=== PATIENT | male | born 1990 | race Caucasian/White ===

== ENCOUNTER 2021-02-27 18:40 | Emergency (ER) | payer BC, SELFPAY ==
--- NOTE | ~2021-02-27 | XR_ITS ---
EXAMINATION: XR chest 2V DATE: 02/27/2021 22:04 INDICATION: Palpitations and chest tightness radiating down the left arm. TECHNIQUE: PA and lateral views of the chest were obtained. COMPARISON: None FINDINGS: The lungs are clear with no focal airspace opacities, pulmonary edema, pleural effusion or pneumothor ax. The cardiomediastinal silhouette is normal. Visualized bones and soft tissues are unremarkable. IMPRESSION: 1. No acute cardiopulmonary disease. Reviewed, dictated and finalized at location A.
[2021-02-27 19:09] VITALS: BP 152/86; PULSE 103; RESP 16; TEMP 36.6; O2SAT 99
--- NOTE | 2021-02-27 19:12 | ECG_ITS ---
Measurements Intervals [place] Rate: 94 P: 32 CO: 168 QRS: 9 QRSD: 107 T: 32 QT: 338 QTc: 424 Interpretive Statements SINUS RHYTHM WITH SINUS ARRHYTHMIA BORDERLINE T WAVE ABNORMALITY- INFERIOR LEADS BASELINE ARTIFACT- I, II, AVR, AVL, AVF BORDERLINE ECG Electronically Signed On 02-27-2021 19:58:39 CDT by Jose Mena D.O.
[2021-02-27 21:29] VITALS: BP 107/72; PULSE 107; RESP 18; O2SAT 100
--- NOTE | 2021-02-27 21:50 | ED.GENADULT ---
HPI - General Adult General Chief complaint: Anxiety Stated complaint: THINK I HAD A PANICK ATTACK Time Seen by Provider: 02/27/21 21:23 Source: patient and RN notes reviewed Mode of arrival: ambulatory Limitations: no limitations History of Present Illness HPI narrative: This is a 30 year old male who presents for evaluation of a possible panic attack. He states just prior to arrival he was sitting at his desk. While he was sitting he developed pounding feeling in his neck and pain shooting down his left arm. He denies having chest pain, nausea, vomiting, diaphoresis, sob, or dizziness with these symptoms. He states this lasted for 1 minute and it resolved. He denies any symptoms now. He states an episode similar to this occurred 1 week ago, and he was evaluated at [place]. He denies chest pain or sob in between these symptoms. He states the episode happened last week after taking THC edibles. Related Data Allergies Allergy/AdvReac Type Severity Reaction Status Date / Time No Known Allergies Allergy Unverified 01/28/19 23:53 Review of Systems Review of Systems: All systems reviewed & are unremarkable except as noted in HPI and below PMFSH Past Medical History Medical History (Updated 02/27/21 @ 23:57 by Nalini Yeung MD) Patient denies medical problems Surgical History Surgical History (Updated 02/27/21 @ 21:54 by Nalini Yeung MD) History of ankle surgery Social History Social History (Updated 02/27/21 @ 21:54 by Nalini Yeung MD) Smoking status: Never smoker Substance use type: marijuana Exam Const: General: no acute distress and alert Nutritional Appearance: obese Orientation/consciousness: patient oriented x3 Eyes: EOM: EOMs intact bilaterally Resp: Effort & Inspection: normal respiratory effort and no retractions Auscultation: clear to auscultation bilaterally Cardio: Rate: regular rate Rhythm: regular rhythm Heart sounds: no murmurs GI: GI Palp: Yes Soft to palpation, No Tenderness to palpation present (GI) and No Guarding due to palpation present (GI) Auscultation: normal bowel sounds Skin: General skin exam: normal color Rashes: no rashes Neuro: General: patient oriented x3, moves all extremities and CN's II-XI intact bilaterally Psych: Mental Status: mental status grossly normal Affect: normal affect Course Reevaluation(s) Reevaluation #1: I Discussed with patient labs are unremarkable. I discussed with patient that he will need to follow up for possible evaluation of an arrhythmia Date: 02/27/21 Time: 23:56 Vital Signs Vital signs: Vital Signs Temperature 97.8 F 02/27/21 19:09 Pulse Rate 103 H 02/27/21 19:09 Respiratory Rate 16 02/27/21 19:09 Blood Pressure 152/86 H 02/27/21 19:09 Pulse Oximetry 99 02/27/21 19:09 Temperature 97.8 F 02/27/21 19:09 Pulse Rate 100 02/27/21 23:54 Respiratory Rate 18 02/27/21 23:54 Blood Pressure 125/84 02/27/21 23:54 Pulse Oximetry 99 02/27/21 23:54 Medical Decision Making Vital Signs Vital Signs: Vital Signs Temperature 97.8 F 02/27/21 19:09 Pulse Rate 103 H 02/27/21 19:09 Respiratory Rate 16 02/27/21 19:09 Blood Pressure 152/86 H 02/27/21 19:09 Pulse Oximetry 99 02/27/21 19:09 Temperature 97.8 F 02/27/21 19:09 Pulse Rate 100 02/27/21 23:54 Respiratory Rate 18 02/27/21 23:54 Blood Pressure 125/84 02/27/21 23:54 Pulse Oximetry 99 02/27/21 23:54 Lab Data Lab results reviewed: Yes I reviewed the patient's lab results. Result diagrams: 02/27/21 23:12 02/27/21 22:46 Labs: Lab Results 02/27/21 02/27/21 02/27/21 Range/Units 22:46 22:46 23:12 WBC 9.5 (4.5-10.0) K/mm3 RBC 5.35 (4.6-6.20) M/mm3 Hgb 15.7 (14.0-18.0) g/dL Hct 46.5 (42.0-52.0) % MCV 86.9 (80-100) fl MCH 29.3 (26-34) pg MCHC 33.8 (32-36) g/dl RDW 12.1 (11.5-14.5) % Plt Count 317 (150-375) k/mm3
[2021-02-27 23:01] LABS: Alanine Aminotransferase 27 U/L (4-50); Albumin Level 4.6 g/dL (3.5-5.1); Alkaline Phosphatase 104 U/L (38-126); Anion Gap 12 mmol/L (8-16); Aspartate Amino Transferase 28 U/L (17-59); Bilirubin,Total 1.1 mg/dL (0.2-1.3); Blood Urea Nitrogen 14 mg/dL (9-20); Calcium 9.4 mg/dL (8.4-10.2); Carbon Dioxide 24 mmol/L (22-30); Chloride 103 mmol/L (98-107); Estimated CRCL calculation 207 ml/min; Estimated Glomerular Filt Rate > 60; Glucose 102 mg/dL (75-110); Potassium 3.8 mmol/L (3.4-5.0); Sodium 139 mmol/L (137-145)
[2021-02-27 23:02] LABS: Magnesium 1.6 mg/dL (1.6-2.3)
[2021-02-27 23:13] LABS: Troponin I < 0.012 ng/mL (0.000-0.034)
[2021-02-27 23:33] LABS: Basophils Percent Auto 0.4 % (0.2-1.2); Eosinophils Percent Auto 0.4 % (0-4.4); Hematocrit 46.5 % (42.0-52.0); Hemoglobin 15.7 g/dL (14.0-18.0); Immature Granulocyte Absolute 0.03 K/mm3 (0.00-0.031); Immature Granulocyte Percent A 0.3 % (0-0.5); Lymphocytes Absolute Auto 1.45 K/mm3 (0.9-3.2); Lymphocytes Percent Auto 15.3 % (18.3-44.2); Mean Corpuscular HGB Conc 33.8 g/dl (32-36); Mean Corpuscular Hemoglobin 29.3 pg (26-34); Mean Corpuscular Volume 86.9 fl (80-100); Mean Platelet Volume 9.3 fl (7.4-10.4); Monocytes Absolute Auto 0.5 K/mm3 (0.1-0.6); Monocytes Percent Auto 5.5 % (2.6-8.5); Neutrophils Absolute Auto 7.4 K/mm3 (1.3-6.7); Neutrophils Percent Auto 78.1 % (45.5-73.1); Platelet Count Result 317 k/mm3 (150-375); Red Blood Count 5.35 M/mm3 (4.6-6.20); Red Cell Distribution Width 12.1 % (11.5-14.5); White Blood Count 9.5 K/mm3 (4.5-10.0)
[2021-02-27 23:43] LABS: Partial Thromboplastin Time 30.9 SECONDS (22.3-36.8); Prothrombin Time 13.8 Seconds (11.1-14.7)
[2021-02-27 23:54] VITALS: BP 125/84; PULSE 100; RESP 18; O2SAT 99
== END 2021-02-28 00:02 | disposition home or self-care (01) ==
PROVIDERS: Emergency Provider General Practice
DX: R00.2 Palpitations (principal); R94.31 Abnormal electrocardiogram [ECG] [EKG]
CPT/HCPCS: 36415; 71046; 80053; 83735; 84484; 85025; 85610; 85730; 93005; 99284